=== PATIENT | female | born 1975 | race Caucasian/White ===

== ENCOUNTER → 2017-09-11 | Outpatient (CLI) | payer OTHER ==
[~2017-09-11] MED LIST: CATHETER FLUSH 10 ML SYR IV PRN; IOHEXOL 350 MG/ML 100 ML (OMNIPAQUE 350) VIAL IV ONE; NS 100 ML (IVPB) BAG IV ONE
--- NOTE | 2017-09-11 14:38 | Diagnostic Imaging Report ---
CLINICAL INDICATION: Followup exam. Neck feels tight and like something is in throat. Patient has jaw and ear pain. EXAM: CT scan of the neck soft tissue performed with 75 cc of Omnipaque 350 IV contrast. Coronal and sagittal reformatted images are created. COMPARISON: None. FINDINGS: The nasopharynx, oropharynx, hypopharynx, and laryngeal soft tissues are unremarkable and relatively symmetric. There is mild prominence of the posterior lingual tonsillar tissue. There is no soft tissue mass seen. There is no evidence of abscess, fat stranding, or other fluid collection. There is no significant neck lymphadenopathy. The bilateral salivary glands and thyroid gland are unremarkable. The visualized neck arterial and venous structures are grossly unremarkable and patent. There is kyphosis of the cervical spine centered at the C4-C5 level, which is nonspecific. Otherwise, cervical spine is unremarkable. There are emphysematous changes involving both lung apices (right side more than the left). IMPRESSION: There is mild prominence of the posterior lingual tonsillar tissue, which may be reactive. Otherwise, there is no significant neck soft tissue abnormality. Dictated by: Dictated on workstation # [id number]
== END ==
LOC: RAD 12:31
PROVIDERS: ATTEND Surgery
DX: J35.8 Other chronic diseases of tonsils and adenoids (principal)
CPT/HCPCS: 70491